=== PATIENT | female | born 1960 | race Caucasian/White ===

== ENCOUNTER → 2020-08-18 09:21 | Outpatient (BNVA) | payer OTHER, SELFPAY | PROVIDERS: Visit Provider Internal Medicine | DX: M79.601 Pain in right arm (principal); M54.10 Radiculopathy, site unspecified | CPT/HCPCS: 72050; 99203 ==

== ENCOUNTER → 2020-08-24 11:11 | Outpatient (BNVA) | payer OTHER, SELFPAY | PROVIDERS: Visit Provider Internal Medicine | DX: M47.812 Spondylosis without myelopathy or radiculopathy, cervical region (principal); G58.9 Mononeuropathy, unspecified | CPT/HCPCS: 99213 ==

== ENCOUNTER → 2020-09-08 11:26 | Outpatient (BNVA) | payer OTHER, SELFPAY | PROVIDERS: PCP Internal Medicine; Visit Provider Internal Medicine | DX: M79.621 Pain in right upper arm (principal); M50.10 Cervical disc disorder with radiculopathy, unspecified cervical region; R20.0 Anesthesia of skin | CPT/HCPCS: 99213 ==

== ENCOUNTER → 2020-09-22 09:56 | Outpatient (BNVA) | payer OTHER, SELFPAY | PROVIDERS: PCP Internal Medicine; Visit Provider Internal Medicine | DX: M54.10 Radiculopathy, site unspecified (principal); R20.0 Anesthesia of skin | CPT/HCPCS: 99213 ==

== ENCOUNTER 2020-09-29 15:00 | Outpatient (RCR) | payer OTHER, SELFPAY ==
--- NOTE | 2020-09-01 19:25 | MHC.PT.EP ---
[facility] [place] [facility] [place] [facility] [place] Office [address] Maryann Mendoza [address] [phone] F: [phone] F: [phone] F: [phone] F: [phone] Physical Therapy Plan of Care Date of Evaluation: 09/01/20 Date of Surgery: Diagnosis: Cervical DDD with radiculopathy R shoulder. Assessment: Pt is a 6- y/o female referred to PT for eval and treat of cervical DDD with R UE radiculopathy who presents with signs and Sx consistent with Dx and R shoulder dysfunction resulting in decreased tolerance for performing home and work tasks of dressing beds, folding laundry, performing repetitive UE tasks, placing objects on high shelves, and lifting and carrying objects of weight as well as disturbed sleep secondary to decreased R shoulder ROM and strength, decreased cervical, thoracic, and scapular posture, R UE radicular symptoms, and pain. Pt is deemed an appropriate candidate to receive skilled PT services in order to address her physical impairments to improve her functional ability and return her to her PLOF. Frequency and Duration: The patient will be seen 2 x / wk x 5 wks. Short Term Goals: In 1 week: initiate HEP with evidence of compliance. In 3 weeks: improve UE radicular Sx by 50%. Stem Shaper Goals: in 5 weeks: Pt will be able to make beds with managed Sx. In 5 weeks: Pt will be able to place object on high shelf with managed Sx. In 5 weeks: Pt will report no longer disturbed of sleep d/t cervical / shoulder pain. Treatment Plan: Modalities to reduce pain, spasms and effusion. Manual therapy to restore motion and function. Therapeutic exercise to improve strength and flexibility. Neuromuscular re-education for posture and balance. Therapeutic activities to return to functional activities of daily living. Electronically signed by: Luigi Johnson PT Please sign and return to therapist. Thank you for your referral.
--- NOTE | 2020-11-17 15:57 | MHC.PT.DC ---
[facility] [place] [facility] [place] Office [place] Office [address] Maryann Mendoza [address] [phone] F: [phone] F: [phone] F: [phone] F: [phone] Physical Therapy Discharge Report Diagnosis: Cervical DDD with radiculopathy R shoulder. Date of Surgery: Date of Evaluation: 09/01/20 Date of Discharge: 11/17/20 Treatments to Date: 8 Cancellations to Date: 0 No Shows to Date: 0 Discharge Status: Improved Function Independent with HEP Patient Elected to Stop Electronically signed by: Luigi Johnson PT Please sign and return to therapist. Thank you for your referral.
== END 2020-11-17 16:12 | disposition home or self-care (01) ==
LOC: HO.PTCHIC 15:00
PROVIDERS: PCP Internal Medicine; Visit Provider Internal Medicine
DX: M50.10 Cervical disc disorder with radiculopathy, unspecified cervical region (principal)
CPT/HCPCS: 97110; 97140; 97161; 97164

== ENCOUNTER 2020-10-06 09:26 | Outpatient (REF) | payer OTHER, SELFPAY ==
--- NOTE | ~2020-10-06 | MR_ITS ---
EXAMINATION: MR CERVICAL SPINE WITHOUT CONTRAST CLINICAL INFORMATION: 60-year-old with history of lifting/pulling injury, with radicular pain. COMPARISON: 08/18/2020 x-ray TECHNIQUE: MRI of the cervical spine was obtained using routine sequences without contrast. FINDINGS: Alignment: There is trace anterolisthesis at C4-C5 similar to previous x-ray. Lordotic curvature is maintained. No significant retrolisthesis. Craniocervical Junction/C1-C2 Articulations:?Intact and aligned. Visualized Intracranial Structures: Within normal limits. Vertebral Bodies: Normal height. Bone Marrow: No significant marrow replacing process. No fractures. C2-C3: Disc space height is well maintained without disc herniation or spondylosis. There is eofx-px-iteqlxyq facet arthropathy bilaterally without significant canal or neural foraminal stenosis. C3-C4: Vsnw-cv-dhqcruso loss of disc space height is noted with anterior marginal spondylosis. There is posterior disc osteophyte complex asymmetric to the right with jybu-jj-qbirbfqe ventral cord impingement, with ligamentum flavum thickening and effacement of the dorsal dural sac. There is moderate central spinal canal stenosis asymmetric to the right. There is uncovertebral spurring bilaterally, with fvihills-cp-hicjks facet arthropathy, right more than left, with reactive marrow edema on both sides of the right facet joint with a small right facet joint effusion. There is a small synovial cyst arising from the posterior inferior margin of the right facet joint, with probable nodular synovitis. There is moderate bilateral neural foraminal stenosis. C4-C5: Moderate loss of disc space height is noted with intradiscal degenerative signal changes, with a radial annular fissure noted posteriorly with trace anterolisthesis and mild anterior marginal spondylosis. There is posterior disc osteophyte complex with flattening of the dural sac asymmetric to the left without spinal cord impingement. There is uncovertebral spurring, left more than right, and there is marked facet hypertrophic change with facet ankylosis on the left and fatty replacement of the lateral masses on the left. There is wkwc-um-vwzbrlfw right-sided facet arthrosis. There is severe left-sided and moderate right-sided neural foraminal stenosis, with mild central canal stenosis. C5-C6: Dkxncodg-sv-pjnesp loss of disc space height is noted with mild anterior marginal spondylosis. There is posterior disc osteophyte complex with effacement of the dural sac abutting the ventral aspect of the spinal cord with ligamentum flavum thickening with effacement of the dorsal dural sac, with moderate central spinal stenosis without cord compression. There is bilateral uncovertebral spurring and bilateral facet hypertrophic change with severe right-sided and dhfuotha-wu-dmfruw left-sided neural foraminal stenosis. C6-C7: Mild loss of disc space height noted posteriorly with mild anterior marginal spondylosis. There is a right paramedian posterior disc osteophyte complex in addition to a left paramedian disc herniation with effacement of the dural sac without cord impingement. There is ligamentum flavum thickening or infolding with moderate central spinal canal stenosis. There is bilateral uncovertebral spurring and facet arthropathy, with zrlwbbxv-qg-qcfztc bilateral neural foraminal stenosis. C7-T1: Disc space height is well maintained without disc herniation or spondylosis. There is trace anterolisthesis at this level, and there is bilateral uncovertebral spurring and bilateral facet arthropathy with moderate bilateral neural foraminal stenosis without significant spinal canal stenosis. There is slight anterolisthesis at T1-T2 and T2-T3, and there is marked bilateral facet arthropathy at multiple upper thoracic levels bilaterally with moderate bilateral neural foraminal stenosis at T2-T3 and T3-T4 and on the right at T1-T2. The cervical and visualized upper thoracic spinal cord is normal in signal intensity throughout, without focal lesion, edema or syrinx formation. MR/MR cervical spine wo con IMPRESSION: 1. Multilevel DDD, spondylosis and DJD, as described above largely between C3-C4 and C7 inclusive, with facet ankylosis on the left at C4-C5. 2. Multilevel posterior disc osteophyte complexes and multilevel anterior subluxations with ligamentum flavum thickening at multiple levels, with moderate multilevel spinal canal stenosis and mild cord compression at C3-C4. 3. Multilevel bilateral neural foraminal stenosis, as described above. There is active facet arthropathy on the right at C3-C4. 4. Multilevel upper thoracic facet arthropathy, with minor degrees of anterolisthesis at T1-T2 and T2-T3 with multilevel upper thoracic neural foraminal stenosis.
== END 2020-10-06 09:27 | disposition home or self-care (01) ==
LOC: HO.MRI 09:26
PROVIDERS: Visit Provider Internal Medicine
DX: M54.10 Radiculopathy, site unspecified (principal); R20.0 Anesthesia of skin
CPT/HCPCS: 72141

== ENCOUNTER → 2020-10-06 10:31 | Outpatient (BNVA) | payer OTHER, SELFPAY | PROVIDERS: PCP Internal Medicine; Visit Provider Internal Medicine | DX: M79.601 Pain in right arm (principal) | CPT/HCPCS: 99214 ==

== ENCOUNTER → 2020-10-10 13:20 | Outpatient (BNVA) | payer OTHER, SELFPAY | PROVIDERS: PCP Internal Medicine; Visit Provider Internal Medicine | DX: M54.12 Radiculopathy, cervical region (principal) | CPT/HCPCS: 99213 ==

== ENCOUNTER → 2020-10-27 09:20 | Outpatient (BNVA) | payer OTHER, SELFPAY | PROVIDERS: PCP Internal Medicine; Visit Provider Internal Medicine | DX: M50.30 Other cervical disc degeneration, unspecified cervical region (principal) | CPT/HCPCS: 99213 ==

== ENCOUNTER → 2020-11-17 08:57 | Outpatient (BNVA) | payer OTHER, SELFPAY | PROVIDERS: PCP Internal Medicine; Visit Provider Internal Medicine | DX: S63.501A Unspecified sprain of right wrist, initial encounter (principal); X58.XXXA Exposure to other specified factors, initial encounter | CPT/HCPCS: 99213 ==

== ENCOUNTER 2021-07-04 20:27 | Emergency (ER) | payer OTHER, SELFPAY ==
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
[2021-07-04 20:41] VITALS: BP 145/76; PULSE 83; RESP 18; TEMP 36.6; O2SAT 98; BMI 23.1
[2021-07-04 21:16] LABS: MANUAL DIFF FLAG NO
[2021-07-04 21:18] LABS: Basophils Percent Auto 0.3 % (0-2); Eosinophils Absolute Auto 0.1 X10*3/uL (0.0-0.4); Hemoglobin 13.5 g/dl (12.0-16.0); Imm Gran Abs Auto 0.02 X10*3/uL (0.00-0.03); Imm Gran Pct Auto 0.3 % (0.0-0.4); Lymphocytes Absolute Auto 1.7 X10*3/uL (1.2-4.9); Lymphocytes Percent Auto 29.4 % (20-40); Mean Corpuscular HGB Conc 33.8 g/dl (31.0-35.0); Mean Corpuscular Hemoglobin 31.3 pg (27.0-33.0); Mean Corpuscular Volume 92.6 fL (80.0-98.0); Mean Platelet Volume 11.3 fL (9.4-12.3); Monocytes Absolute Auto 0.6 X10*3/uL (0.1-1.2); Monocytes Percent Auto 9.3 % (2-11); Neutrophils Absolute Auto 3.5 x10*3/uL (2.0-8.3); Neutrophils Percent Auto 59.7 % (45-73); Platelet Count 198 X10*3/uL (160-400); Red Blood Count 4.32 X10*6/uL (4.20-5.50); Red Cell Distribution Width 13.2 % (11.0-16.0); White Blood Count 5.9 X10*3/uL (4.8-10.8)
[2021-07-04 21:32] LABS: Alanine Aminotransferase 16 U/L (0-31); Albumin Level 4.1 g/dL (3.5-5.0); Alkaline Phosphatase 84 U/L (39-117); Anion Gap 13 (12-20); Aspartate Amino Transferase 21 U/L (5-31); Bilirubin Total 0.3 mg/dL (0.0-1.0); Blood Urea Nitrogen 24 mg/dL (9-16); Calcium 9.8 mg/dL (8.4-10.2); Carbon Dioxide 25 mmol/L (22-29); Chloride 108 mmol/L (96-108); Creatinine Clr Calc Pharmacy 69.2; Estimated Glomerular Filt Rate > 60; Glucose Random 101 mg/dL (60-115); Potassium 4.1 mmol/L (3.3-5.1); Sodium 142 mmol/L (135-145); Total Protein 6.7 g/dL (6.5-8.0)
[2021-07-05] VITALS: RESP 16; O2SAT 98
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
[2021-07-05 02:00] VITALS: RESP 16; O2SAT 97
[2021-07-05 03:43] VITALS: BP 160/73; PULSE 67; RESP 16; TEMP 37.1; O2SAT 96
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
== END 2021-07-05 03:58 | disposition short-term general hospital (02) ==
PROVIDERS: Emergency Provider Emergency Medicine Emergency Medical Services; PCP Internal Medicine
DX: S06.301A Unspecified focal traumatic brain injury with loss of consciousness of 30 minutes or less, initial encounter (principal); W10.9XXA Fall (on) (from) unspecified stairs and steps, initial encounter; Y93.9 Activity, unspecified; Y92.9 Unspecified place or not applicable; Y99.9 Unspecified external cause status
CPT/HCPCS: 36415; 70450; 72125; 80053; 85025; 99285; 99291